=== PATIENT | male | born 1945 | race Caucasian/White ===

== ENCOUNTER 2017-03-03 11:54 | Emergency (ER) | payer MEDICARE ==
[2017-03-03 12:00] VITALS: BP 123/56; PULSE 75; RESP 16; TEMP 97.1
--- NOTE | 2017-03-03 12:04 | ED ---
General Adult HPI - General Chief complaint: ENT Stated complaint: Nosebleed Time Seen by Provider: 03/03/17 12:03 Source: patient, RN notes reviewed, old records reviewed Mode of arrival: wheelchair Limitations: no limitations - History of Present Illness Initial comments: This is a 71-year-old male in the ER for reevaluation nosebleed. 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 Has been bleeding for last half hour. Patient has no weakness, no symptoms of near syncope. No lightheadedness or dizziness. Multiple issues of nosebleeds in the past with multipleback and - Related Data Home Medications Medication Instructions Recorded Confirmed ALPRAZolam [Xanax] 0.25 mg PO HS PRN 03/03/17 03/03/17 Amiodarone [Cordarone] 400 mg PO DAILY 03/03/17 03/03/17 Aspirin [Adult Low Dose Aspirin EC] 81 mg PO DAILY 03/03/17 03/03/17 Atorvastatin [Lipitor] 80 mg PO DAILY 03/03/17 03/03/17 Carvedilol [Coreg] 3.125 mg PO BID 03/03/17 03/03/17 Clopidogrel [Plavix] 75 mg PO DAILY 03/03/17 03/03/17 Docusate [Colace] 100 mg PO DAILY PRN 03/03/17 03/03/17 Ferrous Sulfate [Feosol] 325 mg PO DAILY 03/03/17 03/03/17 Furosemide [Lasix] 40 mg PO DAILY 03/03/17 03/03/17 Geranium Oil 0.17% Drops 2 - 3 drops EA NOSTRIL BID 03/03/17 03/03/17 HYDROcodone/APAP 5-325MG [[place] 1 - 2 tab PO QID PRN 03/03/17 03/03/17 5-325] Ipratropium/Albuterol Sulfate 2 puff INHALATION RT-BID 03/03/17 03/03/17 [Combivent Respimat Inhaler] Lisinopril [Zestril] 2.5 mg PO DAILY 03/03/17 03/03/17 Loratadine [Claritin] 10 mg PO DAILY PRN 03/03/17 03/03/17 Magnesium Oxide [Mag-Ox] 400 mg PO DAILY 03/03/17 03/03/17 Oxymetazoline 0.05% Nasl [place] 1 spray EA NOSTRIL DAILY PRN 03/03/17 03/03/17 [Afrin 0.05% Nasal [place]] Primidone [Mysoline] 50 mg PO BID 03/03/17 03/03/17 Spironolactone [Aldactone] 12.5 mg PO DAILY 03/03/17 03/03/17 Tamsulosin HCl [Flomax] 0.4 mg PO DAILY 03/03/17 03/03/17 Thalidomide [Thalomid] 100 mg PO HS 03/03/17 03/03/17 Tiotropium 18 Mcg/Puff [Spiriva] 1 cap INHALATION RT-DAILY 03/03/17 03/03/17 Allergies Allergy/AdvReac Type Severity Reaction Status Date / Time No Known Allergies Allergy Verified 03/03/17 12:20 Review of Systems ROS Statement: Those systems with pertinent positive or pertinent negative responses have been documented in the HPI. ROS Other: All systems not noted in ROS Statement are negative. Past Medical History Past Medical History: Coronary Artery Disease (CAD), CVA/TIA, Hyperlipidemia, Hypertension, Myocardial Infarction (MD) Additional Past Medical History / Comment(s): nose bleeds History of Any Multi-Drug Resistant Organisms: None Reported Past Surgical History: Heart Catheterization With Stent Past Psychological History: No Psychological Hx Reported Smoking Status: Former smoker Past Alcohol Use History: Occasional Past Drug Use History: None Reported General Exam - General Exam Comments Initial Comments: Left naris epistaxis, anterior Limitations: no limitations General appearance: alert, in no apparent distress Head exam: Present: atraumatic, normocephalic, normal inspection Eye exam: Present: normal appearance, PERRL, EOMI. Absent: scleral icterus, conjunctival injection, periorbital swelling ENT exam: Present: normal exam, mucous membranes moist Neck exam: Present: normal inspection. Absent: tenderness, meningismus, lymphadenopathy Respiratory exam: Present: normal lung sounds bilaterally. Absent: respiratory distress, wheezes, rales, rhonchi, stridor Cardiovascular Exam: Present: regular rate, normal rhythm, normal heart sounds. Absent: systolic murmur, diastolic murmur, rubs, gallop, clicks GI/Abdominal exam: Present: soft, normal bowel sounds. Absent: distended, tenderness, guarding, rebound, rigid Extremities exam: Present: normal inspection, full ROM, normal capillary refill. Absent: tenderness, pedal edema, joint swelling, calf tenderness Back exam: Present: normal inspection Neurological exam: Present: alert, oriented X3, CN II-XII intact Psychiatric exam: Present: normal affect, normal mood Skin exam: Present: warm, dry, intact, normal color. Absent: rash Course Vital Signs 03/03/17 11:56 Temperature 97.1 F L Pulse Rate 75 Respiratory 16 Rate Blood Pressure 123/56 O2 Sat by Pulse 99 Oximetry - Reevaluation(s) Reevaluation #1: 03/03/17 12:43 Patient having bleeding from left naris, that is able to be stopped with left knee repacking, minimal drainage from right side is patient does have perforation septal Medical Decision Making - Medical Decision Making 71 male the ER for the left Jacome bleeding with epistaxis, history of HHT on Plavix and aspirin,put his back bleeding is stopped and patient can be discharged home Disposition Clinical Impression: Epistaxis, HHT (hereditary hemorrhagic telangiectasia) Disposition: HOME SELF-CARE Condition: Good Instructions: Nosebleed (ED) Referrals: Nonstaff,Physician [Primary Care Provider] - 1-2 days
== END 2017-03-03 13:33 | disposition home or self-care (01) ==
LOC: EC 11:54
DX: R04.0 Epistaxis (principal); I78.0 Hereditary hemorrhagic telangiectasia; E78.5 Hyperlipidemia, unspecified; I25.10 Atherosclerotic heart disease of native coronary artery without angina pectoris; I25.2 Old myocardial infarction; I10 Essential (primary) hypertension; Z86.73 Personal history of transient ischemic attack (TIA), and cerebral infarction without residual deficits; Z87.891 Personal history of nicotine dependence; Z79.01 Long term (current) use of anticoagulants; Z79.82 Long term (current) use of aspirin; Z79.899 Other long term (current) drug therapy
CPT/HCPCS: 99283